=== PATIENT | male | born 1935 | race Caucasian/White ===

== ENCOUNTER 2018-06-09 15:31 | Emergency (ER) | payer MEDICARE ==
[~2018-06-09] VITALS: Ht 177.8 cm; Wt 70.0 kg
[~2018-06-09 15:31] MED LIST: AMOXICILLIN500 MG PO; ASPIRIN ADULT L81 MG PO; BETAPACE80 MG PO; SIMVASTATIN20 MG PO; XARELTO10 MG PO
[2018-06-09] MEDS ORDERED: AMLODIPINE BESYL5 MG PO (15:55)
[2018-06-09] MEDS ORDERED: XARELTO20 MG PO (15:55)
[2018-06-09] MEDS ORDERED: SORINE80 MG PO (15:55)
[2018-06-09 16:25] VITALS: BP 128/59
== END 2018-06-09 16:25 | disposition home or self-care (01) ==
LOC: ED 15:31
DX: H53.9 Unspecified visual disturbance (principal)